=== PATIENT | female | born 1950 | race Caucasian/White ===

== ENCOUNTER → 2016-12-15 | Outpatient (CLI) | payer MEDICARE, OTHER ==
[~2016-12-15] MED LIST: ASPIRIN E.C. 8181 MG PO; BACTRIM DS 8001 TAB PO; CEPHALEXIN500 M1 PO; FLEXERIL5 MG PO; FLONASE NASAL S16 GM NS; FOSAMAX 70MG TA70 MG PO; MIRTAZAPINE7.5 MG PO; MULTAQ400 MG PO; NEURONTIN300 MG/CAP PO; NORCO 325 MG-51 TAB PO; PREMARIN VAG42.5 GM VG; PRILOSEC 20MG20 MG PO; PROAIR HFA0.09 MG/AC IH; PROCARDIA XL 3030 MG PO; RT SPIRIVA18 MCG IH; TIKOSYN0.5 MG; TIKOSYN0.5 MG PO; TYLENOL 325MG325 MG PO; VERELAN180 MG PO; VITAMIN D1000 IU PO; XARELTO20 MG PO; XOPENEX HF0.045 MG/A IH; ZYRTEC 10MG10 MG PO; tikosyn PO
== END ==
LOC: MHCPAIN 10:16
DX: G89.29 Other chronic pain (principal); M47.27 Other spondylosis with radiculopathy, lumbosacral region; G57.00 Lesion of sciatic nerve, unspecified lower limb; I48.91 Unspecified atrial fibrillation; Z79.01 Long term (current) use of anticoagulants
CPT/HCPCS: G0463

== ENCOUNTER → 2016-12-19 | Outpatient (CLI) | payer MEDICARE, OTHER | LOC: MHCPAIN 11:14 | DX: G57.00 Lesion of sciatic nerve, unspecified lower limb (principal) | CPT/HCPCS: J1040 ==

== ENCOUNTER → 2016-12-29 | Outpatient (CLI) | payer MEDICARE, OTHER | LOC: MHCPAIN 09:03 | DX: G89.29 Other chronic pain (principal); M47.817 Spondylosis without myelopathy or radiculopathy, lumbosacral region; M54.16 Radiculopathy, lumbar region; M54.12 Radiculopathy, cervical region; M50.90 Cervical disc disorder, unspecified, unspecified cervical region; M96.1 Postlaminectomy syndrome, not elsewhere classified | CPT/HCPCS: G0463 ==

== ENCOUNTER 2017-01-15 09:18 | Outpatient (CLI) | payer MEDICARE, OTHER ==
[~2017-01-15] VITALS: Ht 165.1 cm; Wt 77.3 kg
[2017-01-15] VITALS (7 sets, daily range): BP systolic 129–138; BP diastolic 74–84; PULSE 64–70
== END 2017-01-15 12:45 | disposition home or self-care (01) ==
LOC: COL.RAD 09:18
DX: M47.892 Other spondylosis, cervical region (principal); E04.1 Nontoxic single thyroid nodule; J98.4 Other disorders of lung
CPT/HCPCS: Q9967

== ENCOUNTER → 2017-02-19 | Outpatient (CLI) | payer MEDICARE, OTHER | LOC: MHCPAIN 08:13 | DX: G89.29 Other chronic pain (principal); M50.90 Cervical disc disorder, unspecified, unspecified cervical region; M54.12 Radiculopathy, cervical region | CPT/HCPCS: G0463 ==

== ENCOUNTER → 2017-03-01 | Outpatient (CLI) | payer MEDICARE, OTHER | LOC: MHCPAIN 09:06 | DX: Z53.8 Procedure and treatment not carried out for other reasons (principal) ==

== ENCOUNTER → 2017-04-06 | Outpatient (CLI) | payer MEDICARE, OTHER | LOC: MHCPAIN 09:35 | DX: G89.29 Other chronic pain (principal); M47.817 Spondylosis without myelopathy or radiculopathy, lumbosacral region; M53.3 Sacrococcygeal disorders, not elsewhere classified; Z79.02 Long term (current) use of antithrombotics/antiplatelets | CPT/HCPCS: G0463 ==

== ENCOUNTER → 2017-04-19 | Outpatient (CLI) | payer MEDICARE, OTHER | LOC: MHCPAIN 07:58 | DX: M47.817 Spondylosis without myelopathy or radiculopathy, lumbosacral region (principal) | CPT/HCPCS: J1040; Q9967 ==

== ENCOUNTER → 2017-04-24 | Outpatient (CLI) | payer MEDICARE, OTHER | LOC: MHCPAIN 13:47 | DX: G89.29 Other chronic pain (principal); M47.817 Spondylosis without myelopathy or radiculopathy, lumbosacral region; M53.3 Sacrococcygeal disorders, not elsewhere classified | CPT/HCPCS: G0463 ==

== ENCOUNTER → 2018-02-18 | Outpatient (CLI) | payer MEDICARE, OTHER | LOC: MHCPAIN 10:07 | DX: G89.29 Other chronic pain (principal); M47.817 Spondylosis without myelopathy or radiculopathy, lumbosacral region; M54.16 Radiculopathy, lumbar region; M53.3 Sacrococcygeal disorders, not elsewhere classified; M47.812 Spondylosis without myelopathy or radiculopathy, cervical region | CPT/HCPCS: G0463 ==

== ENCOUNTER → 2018-02-25 | Outpatient (CLI) | payer MEDICARE, OTHER | LOC: MHCPAIN 12:52 → COL.PAINC 14:21 | DX: M47.817 Spondylosis without myelopathy or radiculopathy, lumbosacral region (principal); M46.96 Unspecified inflammatory spondylopathy, lumbar region | CPT/HCPCS: J1040; Q9967 ==

== ENCOUNTER → 2018-04-01 | Outpatient (CLI) | payer MEDICARE, OTHER | LOC: MHCPAIN 09:45 | DX: G89.29 Other chronic pain (principal); M47.817 Spondylosis without myelopathy or radiculopathy, lumbosacral region; M54.16 Radiculopathy, lumbar region; M53.3 Sacrococcygeal disorders, not elsewhere classified | CPT/HCPCS: G0463 ==

== ENCOUNTER → 2018-04-04 | Outpatient (CLI) | payer MEDICARE, OTHER | LOC: MHCPAIN 14:04 | DX: M47.817 Spondylosis without myelopathy or radiculopathy, lumbosacral region (principal); M54.5 Low back pain ==

== ENCOUNTER → 2018-04-10 | Outpatient (CLI) | payer MEDICARE, OTHER | LOC: MHCPAIN 14:09 | DX: G89.29 Other chronic pain (principal); M47.817 Spondylosis without myelopathy or radiculopathy, lumbosacral region; M53.3 Sacrococcygeal disorders, not elsewhere classified | CPT/HCPCS: G0463 ==

== ENCOUNTER → 2018-05-02 | Outpatient (CLI) | payer MEDICARE, OTHER | LOC: MHCPAIN 13:21 | DX: M47.817 Spondylosis without myelopathy or radiculopathy, lumbosacral region (principal); M54.16 Radiculopathy, lumbar region | CPT/HCPCS: J1100; J2250; J3010 ==

== ENCOUNTER → 2018-07-16 | Outpatient (CLI) | payer MEDICARE, OTHER | LOC: MHCPAIN 13:35 | DX: G89.29 Other chronic pain (principal); M47.817 Spondylosis without myelopathy or radiculopathy, lumbosacral region; M53.3 Sacrococcygeal disorders, not elsewhere classified | CPT/HCPCS: G0463 ==

== ENCOUNTER → 2018-08-15 | Outpatient (CLI) | payer MEDICARE, OTHER | LOC: MHCPAIN 15:15 | DX: M53.3 Sacrococcygeal disorders, not elsewhere classified (principal) | CPT/HCPCS: G0260; J1040; Q9967 ==

== ENCOUNTER → 2018-11-12 | Outpatient (CLI) | payer MEDICARE, OTHER | LOC: MHCPAIN 14:38 | DX: G89.29 Other chronic pain (principal); M47.817 Spondylosis without myelopathy or radiculopathy, lumbosacral region; M53.3 Sacrococcygeal disorders, not elsewhere classified | CPT/HCPCS: G0463 ==

== ENCOUNTER → 2018-11-14 | Outpatient (CLI) | payer MEDICARE, OTHER | LOC: MHCPAIN 14:50 | DX: M47.817 Spondylosis without myelopathy or radiculopathy, lumbosacral region (principal); M54.16 Radiculopathy, lumbar region ==

== ENCOUNTER 2019-01-22 07:35 | Day surgery (SDC) | payer MEDICARE, OTHER ==
[~2019-01-22] VITALS: Ht 165.1 cm; Wt 71.7 kg
[2019-01-22 08:31] VITALS: BP 139/93; PULSE 75; TEMP 97.5
[2019-01-22] MEDS ORDERED: TYLENOL 500MG500 MG PO (09:10)
[2019-01-22] MEDS ORDERED: PREMARIN VAG42.5 GM VG (09:11)
[2019-01-22] MEDS ORDERED: FLONASEALLERGY NS (09:12)
[2019-01-22] MEDS ORDERED: MUCINEX1200 MG PO (09:13)
--- NOTE | 2019-01-22 09:50 | NUR ---
Initial visit; Patient thanked Broach Grinder for offering spiritual prayer, especially prayer prior to her surgical procedure.
[2019-01-22 10:53] VITALS: BP 130/68; PULSE 77
--- NOTE | 2019-01-22 10:53 | NUR ---
Patient returns to room 6 per cart from surgery and is awake and alert. Patient accompanied by RN and TAX COMMISSIONER. Right foot elevated on pillow and post op shoe is on. Bulky janie wrap dressing dry and intact on the right foot. Temp 96.8 and room air sats 100%. IV fluids infusing and siderails up x2. Call light in reach.
[2019-01-22 11:08] VITALS: BP 120/83; PULSE 69
--- NOTE | 2019-01-22 11:08 | NUR ---
Patient assisted up to the bathroom and gait steady with post op shoe in place. No drainage noted. Tips of toes pink and warm on the right side.
[2019-01-22 11:23] VITALS: BP 133/72; PULSE 71
--- NOTE | 2019-01-22 11:23 | NUR ---
Patient eating toast and drinking coffee. Denies pain or nausea. Room air sats 100%.
[2019-01-22 11:38] VITALS: BP 127/68; PULSE 72
--- NOTE | 2019-01-22 11:38 | NUR ---
Tolerated toast and coffee without nausea. Continues to deny pain. Bulky janie wrap dressing clean and dry. Right foot remains elevated on pillow. Post op shoe in place and toes remain warm and pink on the right foot.
[2019-01-22 11:53] VITALS: BP 133/61; PULSE 86
--- NOTE | 2019-01-22 11:53 | NUR ---
Patient ready to go home. IV to INT and patient dresses self.
[2019-01-22] MEDS ORDERED: NORCO 325 MG-51 TAB PO (11:56)
--- NOTE | 2019-01-22 12:05 | NUR ---
INT discontinued and given dismissal instructions. Voices understanding of these. Provided script for [place] and hand written dismissal instructions from Dr. Jiménez. Provided office number for questions and concerns.
--- NOTE | 2019-01-22 12:17 | NUR ---
Patient dismissed to home driven by friend per private vehicle and taken to the front door per wheelchair by this RN and assisted into car. Post op shoe maintained and janie wrap dressing dry.
== END 2019-01-22 12:17 | disposition home or self-care (01) ==
LOC: SDCO 07:35
DX: M21.621 Bunionette of right foot (principal); M20.41 Other hammer toe(s) (acquired), right foot; K22.70 Barrett's esophagus without dysplasia; G47.33 Obstructive sleep apnea (adult) (pediatric); I48.1 Persistent atrial fibrillation; Z79.01 Long term (current) use of anticoagulants; Z79.899 Other long term (current) drug therapy
CPT/HCPCS: J0690; J2704; J3010; J7120

== ENCOUNTER 2020-01-28 07:57 | Outpatient (CLI) | payer MEDICARE, OTHER ==
[~2020-01-28] VITALS: Ht 165.1 cm; Wt 67.8 kg
[~2020-01-28 07:57] MED LIST changes: +FLONASEALLERGY NS; +MUCINEX1200 MG PO; +TYLENOL 500MG500 MG PO
[2020-01-28] MEDS ORDERED: COLACE 100100 MG/CAP PO (08:58)
[2020-01-28] MEDS ORDERED: ANTIVERT 25MG25 MG PO (10:09)
[2020-01-28] MEDS ORDERED: PROBIOTIC ACID1 EAC3 PO (10:11)
[2020-01-28] MEDS ORDERED: REFRESH PLUS 00.4 M1 OP (10:12)
[2020-01-28] MEDS ORDERED: ELIQUIS 5MG PO (10:13)
[2020-01-28 10:16] VITALS: BP 132/77; PULSE 72; TEMP 97.9
[2020-01-28 11:02] VITALS: BP 166/91; PULSE 77
--- NOTE | 2020-01-28 11:03 | NUR ---
SEE MERG DOCUMENTATION FOR MEDICATION ADMINISTRATION AND INTRA/POST PROCEDURE SEDATION ASSESSMENTS.
[2020-01-28] MEDS ORDERED: CEPHALEXIN500 M1 PO (11:42)
[2020-01-28 11:55] VITALS: BP 117/73; PULSE 72; TEMP 97.9
--- NOTE | 2020-01-28 12:00 | NUR ---
Discharge instructions given and transferred to private car by elizabeth
== END 2020-01-28 14:00 | disposition home or self-care (01) ==
LOC: COL.CAR 07:57
DX: Z45.09 Encounter for adjustment and management of other cardiac device (principal); I48.0 Paroxysmal atrial fibrillation; Z96.89 Presence of other specified functional implants; Z11.59 Encounter for screening for other viral diseases
CPT/HCPCS: J0690; J2250; J3010

== ENCOUNTER 2020-04-08 15:00 | Outpatient (RCR) | payer MEDICARE, OTHER ==
[~2020-04-08 15:00] MED LIST changes: +ANTIVERT 25MG25 MG PO; +COLACE 100100 MG/CAP PO; +ELIQUIS 5MG PO; +PROBIOTIC ACID1 EAC3 PO; +REFRESH PLUS 00.4 M1 OP
== END 2020-06-27 | disposition home or self-care (01) ==
LOC: WSST
DX: R13.12 Dysphagia, oropharyngeal phase (principal)

== ENCOUNTER → 2020-10-22 | Outpatient (CLI) | payer MEDICARE, OTHER ==
[~2020-10-22] MED LIST changes: +ENULOSE10 GM/151 PO; +MIRALAX238G PO; +VANCOCIN H125 MG/CAP PO
== END ==
LOC: ZCOL.LAB 12:03
DX: Z01.812 Encounter for preprocedural laboratory examination (principal); Z20.822 Contact with and (suspected) exposure to COVID-19

== ENCOUNTER 2021-03-04 12:42 | Emergency (ER) | payer MEDICARE, OTHER ==
[~2021-03-04] VITALS: Ht 165.1 cm; Wt 61.4 kg
[~2021-03-04 12:42] MED LIST changes: -ENULOSE10 GM/151 PO; -MIRALAX238G PO; -VANCOCIN H125 MG/CAP PO
[2021-03-04 13:00] VITALS: TEMP 98.1
[2021-03-04 13:48] LABS: BASO % 0.3 % (0.0-2.0); EOS % 0.3 % (0-4.0); GRAN # 1.5 (1.4-6.5); GRAN % 43.8 % (42.2-75.2); HEMATOCRIT 45.9 % (37.0-47.0); HEMOGLOBIN 14.5 g/dl (12.5-16.0); LYMPH # 1.4 (1.2-3.4); LYMPH % 41.9 % (20.0-51.0); MEAN CELL VOLUME 91 fl (80.0-100.0); MEAN CORPUSCULAR HEMOGLOBIN 29 pg (27.0-31.0); MEAN CORPUSCULAR HGB CONC 32 g/dl (33.0-37.0); MONO # 0.5 (0.1-0.6); MONO % 13.1 % (1.7-9.3); PLATELET COUNT 185 K/mm3 (130-400); RED BLOOD COUNT 5.03 M/mm3 (4.10-5.30); REDCELL DISTRIBUTION WIDTH-CV 14.8 % (11.5-14.5)
[2021-03-04 13:56] LABS: ALANINE AMINOTRANSFERASE 27 U/L (4-34); ALBUMIN 4.3 gm/dL (3.5-5.0); ALKALINE PHOSPHATASE 111 U/L (50-136); ANION GAP 7 mmol/L (7-16); AST,SGOT 39 U/L (15-37); BILIRUBIN,TOTAL 0.2 mg/dL (0.0-1.0); BLOOD UREA NITROGEN 18 mg/dL (7-17); CALCIUM 9.8 mg/dL (8.4-10.2); CARBON DIOXIDE 22 mmol/L (22-30); CHLORIDE 109 mmol/L (98-107); CREATININE, serum 0.99 (0.52-1.25); GLUCOSE 109 mg/dL (74-106); SODIUM 138 mmol/L (137-145); TOTAL PROTEIN 7.4 gm/dL (6.4-8.2)
[2021-03-04 14:00] LABS: INR 1.1 (0.8-3.0); PROTHROMBIN TIME 12.6 SECONDS (9.7-12.8)
[2021-03-04 14:12] LABS: TROPONIN-I < 0.012 ng/mL (0.000-0.035)
[2021-03-04 15:58] VITALS: BP 156/80; PULSE 68
== END 2021-03-04 16:00 | disposition home or self-care (01) ==
LOC: COL.ER 12:42
PROVIDERS: Nurse Practitioner Primary Care
DX: U07.1 COVID-19 (principal); I48.91 Unspecified atrial fibrillation; E66.9 Obesity, unspecified; Z79.01 Long term (current) use of anticoagulants
CPT/HCPCS: J7120

== ENCOUNTER 2021-04-29 11:27 | Emergency (ER) | payer MEDICARE, OTHER ==
[~2021-04-29] VITALS: Ht 162.6 cm; Wt 61.4 kg
[2021-04-29 11:38] VITALS: TEMP 97.9
[2021-04-29 13:08] VITALS: BP 134/89; PULSE 69
== END 2021-04-29 13:08 | disposition home or self-care (01) ==
LOC: COL.ER 11:27
DX: S60.912A Unspecified superficial injury of left wrist, initial encounter (principal); I48.91 Unspecified atrial fibrillation; E66.9 Obesity, unspecified; Z79.01 Long term (current) use of anticoagulants; Z88.6 Allergy status to analgesic agent; Z68.23 Body mass index [BMI] 23.0-23.9, adult; W01.10XA Fall on same level from slipping, tripping and stumbling with subsequent striking against unspecified object, initial encounter

== ENCOUNTER 2021-06-07 09:29 | Emergency (ER) | payer MEDICARE, OTHER ==
[~2021-06-07] VITALS: Ht 170.2 cm; Wt 60.0 kg
[2021-06-07 10:06] VITALS: TEMP 98.7
[2021-06-07 10:34] LABS: COLLECTION METHOD CLEAN CATCH
[2021-06-07 10:39] LABS: MUCOUS Present /lpf; PH 5 (5-8); URINE APPEARANCE Hazy; URINE BACTERIA Many /hpf; URINE BILIRUBIN Negative (NEGATIVE); URINE BLOOD 1+ (NEGATIVE); URINE COLOR Yellow; URINE GLUCOSE Negative (NEGATIVE); URINE KETONE Negative (NEGATIVE); URINE LEUKOCYTE ESTERASE Trace (NEGATIVE); URINE NITRATE Positive (NEGATIVE); URINE PROTEIN(semi-quant) Negative (NEGATIVE); URINE RBC 0-2 /hpf; URINE UROBILINOGEN Negative (NEGATIVE)
[2021-06-07 10:59] LABS: BASO % 0.5 % (0.0-2.0); EOS # 0.1 K/mm3 (0.0-0.7); EOS % 2.2 % (0-4.0); GRAN # 3.4 K/mm3 (1.4-6.5); GRAN % 60.9 % (42.2-75.2); HEMATOCRIT 37.6 % (37.0-47.0); LYMPH # 1.5 K/mm3 (1.2-3.4); LYMPH % 26.4 % (20.0-51.0); MEAN CELL VOLUME 94 fl (80.0-100.0); MEAN CORPUSCULAR HEMOGLOBIN 30 pg (27.0-31.0); MEAN CORPUSCULAR HGB CONC 32 g/dl (33.0-37.0); MONO # 0.5 K/mm3 (0.1-0.6); MONO % 9.5 % (1.7-9.3); PLATELET COUNT 234 K/mm3 (130-400); RED BLOOD COUNT 4.01 M/mm3 (4.10-5.30); REDCELL DISTRIBUTION WIDTH-CV 13.7 % (11.5-14.5)
[2021-06-07 11:20] LABS: ALBUMIN 3.6 gm/dL (3.4-4.8); BILIRUBIN,TOTAL 0.4 mg/dL (0.2-1.2); C-REACTIVE PROTEIN 0.32 mg/dL (0.00-0.50); CALCIUM 9.6 mg/dL (8.4-10.2); CREATININE, serum 0.76 mg/dL (0.57-1.11); POTASSIUM 4.2 mmol/L (3.5-4.5); TOTAL PROTEIN 6.7 gm/dL (6.2-8.1)
[2021-06-07 12:36] VITALS: BP 125/83; PULSE 79
[2021-06-08] MEDS ORDERED: VANCOCIN H125 MG/CAP PO (14:53)
== END 2021-06-07 12:36 | disposition home or self-care (01) ==
LOC: COL.ER 09:29
PROVIDERS: Family Medicine
DX: E86.0 Dehydration (principal); I48.91 Unspecified atrial fibrillation; E66.9 Obesity, unspecified; Z68.20 Body mass index [BMI] 20.0-20.9, adult; Z79.01 Long term (current) use of anticoagulants
CPT/HCPCS: J2405; J7120

== ENCOUNTER 2021-06-08 12:47 | Emergency (ER) | payer MEDICARE, OTHER ==
[~2021-06-08] VITALS: Ht 160 cm; Wt 60.0 kg
[2021-06-08 13:02] VITALS: BP 136/86; PULSE 82; TEMP 97.6
[2021-06-08] MEDS ORDERED: VANCOCIN H125 MG/CAP PO (14:53)
[2021-06-08 16:01] LABS: CLOSTRIDIUM DIFF A/B NEG; CLOSTRIDIUM DIFF A/B INTERP No C.diff present
== END 2021-06-08 14:06 | disposition home or self-care (01) ==
LOC: COL.ER 12:47
PROVIDERS: Student in an Organized Health Care Education/Training Program
DX: E86.0 Dehydration (principal); R19.7 Diarrhea, unspecified; E66.9 Obesity, unspecified; I48.91 Unspecified atrial fibrillation; Z79.01 Long term (current) use of anticoagulants

== ENCOUNTER 2021-06-16 15:16 | Emergency (ER) | payer MEDICARE, OTHER ==
[~2021-06-16] VITALS: Ht 160 cm; Wt 60.5 kg
[~2021-06-16 15:16] MED LIST changes: +VANCOCIN H125 MG/CAP PO
[2021-06-16 15:33] VITALS: TEMP 98.3
[2021-06-16 16:22] LABS: COLLECTION METHOD CLEAN CATCH
[2021-06-16 16:30] LABS: BASO % 0.3 % (0.0-2.0); EOS % 0.2 % (0-4.0); GRAN # 7.9 K/mm3 (1.4-6.5); GRAN % 87.5 % (42.2-75.2); HEMATOCRIT 40.1 % (37.0-47.0); HEMOGLOBIN 12.8 g/dl (12.5-16.0); LYMPH # 0.5 K/mm3 (1.2-3.4); LYMPH % 5.4 % (20.0-51.0); MEAN CELL VOLUME 94 fl (80.0-100.0); MEAN CORPUSCULAR HEMOGLOBIN 30 pg (27.0-31.0); MEAN CORPUSCULAR HGB CONC 32 g/dl (33.0-37.0); MEAN PLATELET VOLUME 8.9 fl (7.4-10.4); MONO # 0.5 K/mm3 (0.1-0.6); PLATELET COUNT 214 K/mm3 (130-400); RED BLOOD COUNT 4.29 M/mm3 (4.10-5.30); REDCELL DISTRIBUTION WIDTH-CV 13.2 % (11.5-14.5)
[2021-06-16 16:49] LABS: ALBUMIN 3.9 gm/dL (3.4-4.8); BILIRUBIN,TOTAL 0.6 mg/dL (0.2-1.2); CALCIUM 9.6 mg/dL (8.4-10.2); CREATININE, serum 0.77 mg/dL (0.57-1.11); POTASSIUM 4.3 mmol/L (3.5-4.5); TOTAL PROTEIN 7.2 gm/dL (6.2-8.1)
[2021-06-16 16:54] LABS: BUDDING YEAST Present /hpf; PH 7 (5-8); SQUAMOUS EPITHELIAL 0-2 /hpf; URINE APPEARANCE Cloudy; URINE BACTERIA None Seen /hpf; URINE BILIRUBIN Negative (NEGATIVE); URINE BLOOD 1+ (NEGATIVE); URINE COLOR Yellow; URINE GLUCOSE Negative (NEGATIVE); URINE KETONE Trace (NEGATIVE); URINE LEUKOCYTE ESTERASE 3+ (NEGATIVE); URINE NITRATE Positive (NEGATIVE); URINE PROTEIN(semi-quant) 1+ (NEGATIVE); URINE RBC 20-50 /hpf; URINE UROBILINOGEN Negative (NEGATIVE)
[2021-06-16] MEDS ORDERED: ENULOSE10 GM/151 PO (21:12)
[2021-06-16] MEDS ORDERED: MIRALAX238G PO (21:12)
[2021-06-16] MEDS ORDERED: CEPHALEXIN500 M1 PO (21:13)
[2021-06-16 21:26] VITALS: BP 120/70; PULSE 93
[2021-06-17 23:36] LABS: T3 FREE (TRI-IODOTHYRONINE) 2.3 pg/mL (1.7-3.7)
== END 2021-06-16 21:26 | disposition home or self-care (01) ==
LOC: COL.ER 15:16
PROVIDERS: Personal Emergency Response Attendant
DX: A04.72 Enterocolitis due to Clostridium difficile, not specified as recurrent (principal); E86.0 Dehydration; N39.0 Urinary tract infection, site not specified; I48.91 Unspecified atrial fibrillation; Z86.16 Personal history of COVID-19; Z79.01 Long term (current) use of anticoagulants
CPT/HCPCS: J0696; J2270; J2405; J7030; Q9967

== ENCOUNTER → 2021-08-15 | Outpatient (CLI) | payer MEDICARE, OTHER ==
[~2021-08-15] VITALS: Ht 160 cm; Wt 59.6 kg
[~2021-08-15] MED LIST changes: +BUSPAR5 MG PO; +ENULOSE10 GM/151 PO; +MIRALAX238G PO; +PEPCID 20MG TAB20 MG PO; +TOPROL XL 50MG50 MG PO; +VITAMIN D31000 I1 PO
[2021-08-15 09:55] VITALS: BP 148/92; PULSE 71; TEMP 97.7
[2021-08-15 10:40] VITALS: BP 157/97; PULSE 73
== END ==
LOC: COL.RAD 09:21
DX: E04.1 Nontoxic single thyroid nodule (principal)

== ENCOUNTER 2021-10-07 06:01 | Day surgery (SDC) | payer MEDICARE, OTHER ==
[~2021-10-07] VITALS: Ht 160 cm; Wt 63.5 kg
[2021-10-07] MEDS ORDERED: CRANBERRY (06:26)
[2021-10-07 06:36] VITALS: BP 140/98; PULSE 70; TEMP 98.1
[2021-10-07] MEDS ORDERED: PROTONIX 40MG T40 MG (07:31)
[2021-10-07 07:40] VITALS: BP 127/87; PULSE 71; TEMP 97.7
--- NOTE | 2021-10-07 07:40 | NUR ---
PT TO BAY 2 VIA CART FROM ENDO ROOM, WALKED TO CHAIR, GAIT STEADY, AWAKE, NO C/O, SIPS ON WATER, CALL LIGHT IN REACH
[2021-10-07 07:55] VITALS: BP 135/88; PULSE 69
[2021-10-07 08:10] VITALS: BP 142/90; PULSE 68
--- NOTE | 2021-10-07 08:10 | NUR ---
DR HERE TO TALK TO PT AND FAMILY MEMBER, LOC Olson[employer]CD INTACT. PT UP AND DRESSED, AMB. TO B/R.
--- NOTE | 2021-10-07 08:25 | NUR ---
REVIEWED DISCHARGE INST. WITH PT ON MODERATE SEDATION, ACTIVITY, FOLLOWUP AND PRECAUTIONS WITH VERBAL UNDERSTANDING. PT DISCHARGED VIA W/C TO CAR WITH FAMILY MEMBER
== END 2021-10-07 08:30 | disposition home or self-care (01) ==
LOC: SDCO 06:01
DX: K22.70 Barrett's esophagus without dysplasia (principal); K21.00 Gastro-esophageal reflux disease with esophagitis, without bleeding; Z98.84 Bariatric surgery status
CPT/HCPCS: J2704; J7030

== ENCOUNTER 2021-12-03 11:24 | Emergency (ER) | payer MEDICARE, OTHER ==
[~2021-12-03] VITALS: Ht 162.6 cm; Wt 63.6 kg
[~2021-12-03 11:24] MED LIST changes: +CRANBERRY; +PROTONIX 40MG T40 MG
[2021-12-03 11:51] LABS: BASO % 0.3 % (0.0-2.0); EOS # 0.1 K/mm3 (0.0-0.7); EOS % 1.1 % (0.0-4.0); GRAN # 5.9 K/mm3 (1.4-6.5); GRAN % 75.2 % (42.2-75.2); HEMATOCRIT 38.7 % (37.0-47.0); HEMOGLOBIN 12.4 g/dl (12.5-16.0); LYMPH # 1.4 K/mm3 (1.2-3.4); LYMPH % 17.3 % (20.0-51.0); MEAN CELL VOLUME 93 fl (80.0-100.0); MEAN CORPUSCULAR HEMOGLOBIN 30 pg (27-31); MEAN CORPUSCULAR HGB CONC 32 g/dl (33.0-37.0); MEAN PLATELET VOLUME 8.9 fl (7.4-10.4); MONO # 0.4 K/mm3 (0.1-0.6); MONO % 5.5 % (1.7-9.3); PLATELET COUNT 247 K/mm3 (130-400); RED BLOOD COUNT 4.16 M/mm3 (4.10-5.30); REDCELL DISTRIBUTION WIDTH-CV 14.1 % (11.5-14.5)
[2021-12-03 12:15] LABS: ALANINE AMINOTRANSFERASE 27 U/L (0-55); ALBUMIN 3.3 gm/dL (3.4-4.8); ALKALINE PHOSPHATASE 97 U/L (40-150); ANION GAP 11 mmol/L (7-16); AST,SGOT 25 U/L (5-34); BILIRUBIN,TOTAL 0.3 mg/dL (0.2-1.2); BLOOD UREA NITROGEN 28 mg/dL (10-20); CALCIUM 8.4 mg/dL (8.4-10.2); CARBON DIOXIDE 16 mmol/L (23-31); CHLORIDE 112 mmol/L (98-107); CREATININE, serum 0.96 mg/dL (0.57-1.11); GLUCOSE 138 mg/dL (70-99); LIPASE 39 U/L (8-78); POTASSIUM 3.4 mmol/L (3.5-4.5); SODIUM 139 mmol/L (136-145); TOTAL PROTEIN 5.9 gm/dL (6.2-8.1)
[2021-12-03 12:33] LABS: COLLECTION METHOD CLEAN CATCH
[2021-12-03 12:39] LABS: TSH w REFLEX 2.753 uIU/mL (0.350-4.940)
[2021-12-03 12:40] LABS: TROPONIN-I < 0.010 ng/mL (0.00-0.033)
[2021-12-03 12:41] LABS: MUCOUS Present (NOT PRESENT); PH 6 (5-8); SQUAMOUS EPITHELIAL 0-2 /hpf (0-10); URINE APPEARANCE Clear (CLEAR/HAZY); URINE BACTERIA Rare /hpf (NONE SEEN); URINE BILIRUBIN Negative (NEGATIVE); URINE BLOOD Negative (NEGATIVE); URINE COLOR Yellow (YELLOW); URINE GLUCOSE Negative (NEGATIVE); URINE KETONE Negative (NEGATIVE); URINE LEUKOCYTE ESTERASE Negative (NEGATIVE); URINE NITRATE Negative (NEGATIVE); URINE PROTEIN(semi-quant) 1+ (NEGATIVE); URINE RBC 0-2 /hpf (0-2); URINE UROBILINOGEN Negative (NEGATIVE)
[2021-12-03] MEDS ORDERED: VANCOCIN H125 MG/CAP PO ×3 (14:05→14:10)
[2021-12-03] MEDS ORDERED: ZOFRAN ODT4 MG PO ×3 (14:07→14:10)
[2021-12-03 14:44] VITALS: BP 124/82; PULSE 75
[2021-12-03 15:21] LABS: CLOSTRIDIUM DIFF A/B NEG; CLOSTRIDIUM DIFF A/B INTERP No C.diff present
== END 2021-12-03 14:46 | disposition home or self-care (01) ==
LOC: COL.ER 11:24
PROVIDERS: Emergency Medicine
DX: R19.7 Diarrhea, unspecified (principal); R11.10 Vomiting, unspecified; D72.829 Elevated white blood cell count, unspecified; E87.2 Acidosis; I48.91 Unspecified atrial fibrillation; Z86.16 Personal history of COVID-19; Z79.01 Long term (current) use of anticoagulants

== ENCOUNTER → 2022-01-05 | Outpatient (CLI) | payer MEDICARE, OTHER ==
[~2022-01-05] MED LIST changes: +ZOFRAN ODT4 MG PO
== END ==
LOC: MC.RAD 11:00
DX: R92.8 Other abnormal and inconclusive findings on diagnostic imaging of breast (principal); R92.1 Mammographic calcification found on diagnostic imaging of breast

== ENCOUNTER → 2022-01-11 | Outpatient (CLI) | payer MEDICARE, OTHER | LOC: MC.RAD 10:30 | DX: N63.20 Unspecified lump in the left breast, unspecified quadrant (principal) ==

== ENCOUNTER → 2022-02-27 | Outpatient (CLI) | payer MEDICARE, OTHER ==
[~2022-02-27] MED LIST changes: +ATIVAN 0.50.5 MG/TAB PO; +DITROPAN 5MG TAB5 MG PO; +MELATONIN 3 MG-1 TAB PO; +PROTONIX 40MG T40 MG PO; +TOPROL XL100 MG PO; +ZOLOFT 25MG25 MG PO; +ZOLOFT 50MG50 MG PO
== END ==
LOC: MC.RAD 13:00
DX: D05.12 Intraductal carcinoma in situ of left breast (principal)
CPT/HCPCS: C1769

== ENCOUNTER 2022-03-17 07:12 | Day surgery (SDC) | payer MEDICARE, OTHER ==
[2022-03-17] VITALS (8 sets, daily range): BP systolic 123–140; BP diastolic 64–79; PULSE 52–69; TEMP 97.5
[~2022-03-17] VITALS: Ht 162.6 cm; Wt 56.4 kg
[~2022-03-17 07:12] MED LIST changes: -ATIVAN 0.50.5 MG/TAB PO; -CRANBERRY; +CRANBERRY PO; -DITROPAN 5MG TAB5 MG PO; -MELATONIN 3 MG-1 TAB PO; -PROTONIX 40MG T40 MG PO; -TOPROL XL100 MG PO; -ZOLOFT 25MG25 MG PO; -ZOLOFT 50MG50 MG PO
[2022-03-17] MEDS ORDERED: ZOLOFT 25MG25 MG PO (08:42)
[2022-03-17] MEDS ORDERED: PROTONIX 40MG T40 MG PO (08:43)
[2022-03-17] MEDS ORDERED: DITROPAN 5MG TAB5 MG PO (08:45)
[2022-03-17] MEDS ORDERED: ATIVAN 0.50.5 MG/TAB PO (08:46)
[2022-03-17] MEDS ORDERED: TOPROL XL100 MG PO (08:46)
[2022-03-17] MEDS ORDERED: ZOLOFT 50MG50 MG PO (08:47)
[2022-03-17] MEDS ORDERED: MELATONIN 3 MG-1 TAB PO (08:51)
[2022-03-17] MEDS ORDERED: FLONASEALLERGY NS (08:52)
--- NOTE | 2022-03-17 10:20 | NUR ---
Pt returned from OR to bay 5. DIL present upon return. VSS-documented. Pt resting comfortably with eyes closed and denies needs. Left axilla dressing clean, dry and intact. Side rails up call light in reach. Warm blankets applied as pt was shiverring
[2022-03-17] MEDS ORDERED: NORCO 325 MG-51 TAB PO (10:32)
--- NOTE | 2022-03-17 11:48 | NUR ---
Pts HOB elevated to help pt wake up and try to eat and drink. Given a muffin, water and coffee per request. VS remain stable. Denies pain or complaints. Call light in reach.
--- NOTE | 2022-03-17 12:00 | NUR ---
IV DISCONTINUED AND SITE IS FREE OF REDNESS OR SWELLING. TOLERATED SNACK. CARE ASSUMED FROM MICHAEL OCASIO.
--- NOTE | 2022-03-17 12:25 | NUR ---
PATIENT IS DRESSED AND TOLERATES ACTIVITY WELL. OFFERS NO COMPLAINTS OF PAIN OR NAUSEA.
--- NOTE | 2022-03-17 12:40 | NUR ---
DISMISSAL INSTRUCTIONS GIVEN AND PATIENT VOICES UNDERSTANDING OF THESE.
--- NOTE | 2022-03-17 12:42 | NUR ---
Initial visit; Patient thanked Cia Agent for coming in this morning to offer encouragement and prayer prior to her surgical procedure. She thanked Cia Agent for helping put her at ease and offering prayer and God's blessings for a successful procedure and rapid and thorough recovery.
--- NOTE | 2022-03-17 12:46 | NUR ---
PATIENT DISMISSED TO HOME DRIVEN BY FAMILY AND TAKEN TO VEHICLE PER WHEELCHAIR AND ASSISTED INTO VEHILCE WITH DISMISSAL INSTRUCTIONS IN HAND. PROVIDED OFFICE NUMBER FOR QUESTIONS AND CONCERNS.
== END 2022-03-17 12:33 | disposition home or self-care (01) ==
LOC: SDCO 07:12
DX: D05.12 Intraductal carcinoma in situ of left breast (principal); Z79.01 Long term (current) use of anticoagulants
CPT/HCPCS: A4648; J0690; J2704; J7120

== ENCOUNTER 2022-03-31 07:47 | Day surgery (SDC) | payer MEDICARE, OTHER ==
[~2022-03-31] VITALS: Ht 160 cm; Wt 56.1 kg
[~2022-03-31 07:47] MED LIST changes: +ATIVAN 0.50.5 MG/TAB PO; +DITROPAN 5MG TAB5 MG PO; +MELATONIN 3 MG-1 TAB PO; +PROTONIX 40MG T40 MG PO; +TOPROL XL100 MG PO; +ZOLOFT 25MG25 MG PO; +ZOLOFT 50MG50 MG PO
[2022-03-31 08:15] VITALS: BP 137/86; PULSE 98; TEMP 97.5
--- NOTE | 2022-03-31 09:50 | NUR ---
Initial visit; recalls patient when she was here for a prior Surgical Procedure and they prayed. Evonne is having a follow-up Procedure today and appreciates 's prayer once again. will keep Evonne in her prayers as well.
[2022-03-31 11:20] VITALS: BP 129/70; PULSE 78; TEMP 97.1
--- NOTE | 2022-03-31 11:20 | NUR ---
The patient arrived back to [facility] from the recovery room at this time. The patient appears alert and oriented and denies any pain or nausea at this time. The patient's dressing to her left lateral chest and breast appear clean, dry and intact. The patient has a neema drain in place that is set to bulb suction and has a small amount of bloody drainage in the tubing and bulb. The patient agrees to try a muffin and water. Post operative vital signs were started at this time. The patient's daughter in law was brought back to be at her bedside. Call light is within reach. Denies any further needs.
[2022-03-31 11:35] VITALS: BP 129/81; PULSE 77
--- NOTE | 2022-03-31 11:35 | NUR ---
The patient appeared to tolerate the food and drink well and denies wanting anything further to eat to drink at this time. The patient's vital signs appear stable. Call light remains within reach. Family remains at bedside.
[2022-03-31 11:50] VITALS: BP 140/71; PULSE 87
--- NOTE | 2022-03-31 11:50 | NUR ---
The patient ambulated to the bathroom with the stand by assistance of two nurses and appeared to tolerate the activity well. The patient voided without diffciulty and voices a desire to be discharged home.
[2022-03-31 11:54] VITALS: BP 129/70; PULSE 75
--- NOTE | 2022-03-31 12:05 | NUR ---
Discharge instructions were reviewed with the patient and her daughter in law at this time. Drain teaching was also completed at this time. They both verbalized understanding and have no questions for the nurse at this time. The patient's IV was removed and a pressure dressing was applied to the site. The nurse instructed the patient to get dressed and notify the staff when she is ready to be escorted out.
--- NOTE | 2022-03-31 12:15 | NUR ---
The patient was escorted out via wheelchair to a private vehicle by NINFA Moody. The patient's belongings and discharge paperwork were sent with her. The patient's daughter in law is present to drive her home.
== END 2022-03-31 12:15 | disposition home or self-care (01) ==
LOC: SDCO 07:47
DX: L76.32 Postprocedural hematoma of skin and subcutaneous tissue following other procedure (principal); D05.12 Intraductal carcinoma in situ of left breast; Z79.01 Long term (current) use of anticoagulants; Z28.310 Unvaccinated for COVID-19; Z28.9 Immunization not carried out for unspecified reason
CPT/HCPCS: J0690; J1100; J1170; J2405; J2704; J3010; J7120

== ENCOUNTER 2022-06-19 15:01 | Emergency (ER) | payer MEDICARE, OTHER ==
[~2022-06-19] VITALS: Ht 160 cm; Wt 54.1 kg
[2022-06-19 15:39] VITALS: TEMP 97.8
[2022-06-19 20:09] VITALS: BP 147/110; PULSE 91
== END 2022-06-19 20:15 | disposition home or self-care (01) ==
LOC: COL.ER 15:01
DX: S80.02XA Contusion of left knee, initial encounter (principal); S60.221A Contusion of right hand, initial encounter; S20.211A Contusion of right front wall of thorax, initial encounter; S09.90XA Unspecified injury of head, initial encounter; I48.91 Unspecified atrial fibrillation; Z96.652 Presence of left artificial knee joint; Z28.310 Unvaccinated for COVID-19; Z79.02 Long term (current) use of antithrombotics/antiplatelets; W01.198A Fall on same level from slipping, tripping and stumbling with subsequent striking against other object, initial encounter; Y93.E3 Activity, vacuuming; Y92.009 Unspecified place in unspecified non-institutional (private) residence as the place of occurrence of the external cause

== ENCOUNTER 2024-03-12 11:03 | Emergency (ER) | payer MEDICARE, OTHER ==
[~2024-03-12] VITALS: Ht 162.6 cm; Wt 57.3 kg
[~2024-03-12 11:03] MED LIST changes: +SINEMET 25/101 UDTAB PO; +SINEMET CR 50 M1 TER PO; +TOPROL XL 25MG25 MG PO; +ZOLOFT 100MG100 MG PO
[2024-03-12 11:15] VITALS: TEMP 98.1
[2024-03-12 11:43] LABS: COLLECTION METHOD CLEAN CATCH
[2024-03-12 11:47] LABS: BASO % 0.5 % (0.0-2.0); EOS # 0.1 K/mm3 (0.0-0.7); EOS % 2.9 % (0.0-4.0); GRAN # 1.8 K/mm3 (1.4-6.5); GRAN % 47.7 % (42.2-75.2); HEMATOCRIT 36.7 % (37.0-47.0); HEMOGLOBIN 11.5 g/dl (12.5-16.0); LYMPH # 1.4 K/mm3 (1.2-3.4); LYMPH % 36.1 % (20.0-51.0); MEAN CELL VOLUME 95 fl (80.0-100.0); MEAN CORPUSCULAR HEMOGLOBIN 30 pg (27-31); MEAN CORPUSCULAR HGB CONC 31 g/dl (33.0-37.0); MEAN PLATELET VOLUME 9.2 fl (7.4-10.4); MONO # 0.5 K/mm3 (0.1-0.6); MONO % 12.5 % (1.7-9.3); PLATELET COUNT 183 K/mm3 (130-400); RED BLOOD COUNT 3.85 M/mm3 (4.10-5.30); REDCELL DISTRIBUTION WIDTH-CV 13.4 % (11.5-14.5)
[2024-03-12 11:51] LABS: URINE APPEARANCE CLEAR (CLEAR/HAZY); URINE BLOOD TRACE (NEGATIVE); URINE COLOR YELLOW (YELLOW); URINE GLUCOSE NEGATIVE (NEGATIVE); URINE KETONE NEGATIVE (NEGATIVE); URINE NITRATE NEGATIVE (NEGATIVE); URINE PROTEIN(semi-quant) NEGATIVE (NEGATIVE); URINE UROBILINOGEN 0.2 E.U/dL (0.2-1.0)
[2024-03-12 12:11] LABS: ALBUMIN 3.7 g/dL (3.4-4.8); ALKALINE PHOSPHATASE 96 U/L (40-150); ANION GAP 9 mmol/L (7-16); AST,SGOT 21 U/L (5-34); BILIRUBIN,TOTAL 0.4 mg/dL (0.2-1.2); BLOOD UREA NITROGEN 30 mg/dL (10-20); CALCIUM 9.4 mg/dL (8.4-10.2); CHLORIDE 113 mEq/L (98-107); CREATININE, serum 0.71 mg/dL (0.57-1.11); GLUCOSE 98 mg/dL (70-99); POTASSIUM 3.9 mEq/L (3.5-4.5); SODIUM 142 mEq/L (136-145); TOTAL PROTEIN 6.5 g/dl (6.2-8.1)
[2024-03-12 12:16] LABS: ALANINE AMINOTRANSFERASE < 6 U/L (0-55)
[2024-03-12 12:21] LABS: TROPONIN-I < 0.010 ng/mL (0.00-0.033)
[2024-03-12 12:58] VITALS: BP 140/66; PULSE 64
== END 2024-03-12 12:58 | disposition home or self-care (01) ==
LOC: COL.ER 11:03
PROVIDERS: Physician Assistant
DX: R07.89 Other chest pain (principal); R53.83 Other fatigue; I48.91 Unspecified atrial fibrillation; Z79.01 Long term (current) use of anticoagulants

== ENCOUNTER → 2024-04-24 | Outpatient (CLI) | payer MEDICARE | LOC: MC.RAD 09:11 | DX: Z12.31 Encounter for screening mammogram for malignant neoplasm of breast (principal); D05.12 Intraductal carcinoma in situ of left breast ==